=== PATIENT | male | born 1960 | race Caucasian/White ===

== ENCOUNTER → 2017-06-22 | Outpatient (CLI) | payer OTHER ==
[~2017-06-22] MED LIST: METF10002 PO; SERT50TA PO; UNK ANTIBIOTIC; [UNRECOGNIZED DRUG - REMARK]
== END | disposition home or self-care (01) ==
LOC: CFH 16:01
PROVIDERS: ATTEND Nurse Practitioner Family
DX: J32.0 Chronic maxillary sinusitis (principal); J32.1 Chronic frontal sinusitis; J32.2 Chronic ethmoidal sinusitis; R51 Headache
CPT/HCPCS: 70450

== ENCOUNTER 2021-06-21 10:12 | Emergency (ER) | payer OTHER ==
[~2021-06-21] VITALS: Ht 177.8 cm; Wt 101.9 kg
[2021-06-21] MEDS ORDERED: SODIUM CHLORIDE 0.9% 1,000ML IVBOLUS ONE (11:00)
[2021-06-21] MEDS ORDERED: SODIUM CHLORIDE FLUSH 10ML SYR IVF ONE (11:00)
--- NOTE | 2021-06-21 11:23 | NUR ---
PT. IS A & O X 4 WITH A GCS OF 15. PT. PRESENTS TODAY FOR ELEVATED BLOOD SUGARS. PT. REPORTS FEELING THIRSTY X 2 WEEKS. HE STATES HE HAS HAD TYPE 2 DM X 10 YEARS. PT. IS PINK, WARM AND DRY. LUNGS ARE CTA THROUGHOUT. PT.'S ABD. IS SOFT AND ROUND WITH BS + X 4 QUADS. PT. IS AMBULATORY, WHITE WNL. PULSES ARE + 2 THROUGHOUT. PT. HAS THE CP MONITOR IN PLACE AND IV ACCESS WAS ESTABLISHED. PT.'S 12 LEAD EKG WAS DONE. LABS WERE DRAWN AND SENT. PCXR DONE. PT. IS RESTING WITH THE HOB ELEVATED AND SIDERAILS ARE UP X 2. CALL LIGHT IN REACH. PT. DECLINED A BLANKET.
[2021-06-21 11:30] LABS: BASOPHILS % (AUTO) 1 % (0-1); EOSINOPHILS % (AUTO) 1 % (1-7); LYMPHOCYTES % (AUTO) 21 % (22-44); MEAN CORPUSCULAR HEMOGLOBIN 28.6 pg (27.5-34.5); MEAN CORPUSCULAR HGB CONC 34.1 g/dL (33.2-36.2); MEAN PLATELET VOLUME 8.9 fL (7.4-10.4); MONOCYTES % (AUTO) 5 % (2-9); NEUTROPHILS % (AUTO) 72 % (42-75); PLATELET COUNT 282 x10^3/uL (130-400); RED BLOOD COUNT 5.84 x10^6/uL (4.38-5.82); RED CELL DISTRIBUTION WIDTH 14.6 % (9.4-14.8)
[2021-06-21 11:40] LABS: ALANINE AMINOTRANSFERASE 26 U/L (12-78); ALBUMIN 3.7 g/dL (3.4-5.0); ANION GAP 14 mmol/L (5-15); CHLORIDE 97 mmol/L (98-107); CREATININE 1.07 mg/dL (0.7-1.3)
[2021-06-21 11:40] LABS: MICROSCOPIC NOT IND
[2021-06-21 11:44] LABS: ALKALINE PHOSPHATASE 157 U/L (45-117); BILIRUBIN,TOTAL 1.2 mg/dL (0.2-1.0); TOTAL PROTEIN 7.7 g/dL (6.4-8.2)
[2021-06-21] MEDS ORDERED: INSULIN REGULAR 100 UNITS/ML, 3ML VIAL SQ-INSULIN ONE (12:00)
--- NOTE | 2021-06-21 12:00 | NUR ---
PT. IS A & O X 4 WITH A GCS OF 15. IV ACCESS ESTABLISHED. PT. HAS C/O LEFT FLANK PAIN AND STATES HE WAS SEEN HERE X 2 DAYS AGO AND DIAGNOSED WITH KIDNEY STONES. PT. IS PINK, WARM AND DRY. LUNGS ARE CTA. PT.'S ABD. IS SOFT AND FLAT WITH BS + X 4 QUADS. PT. IS GUARDING HIS LEFT LOWER ABD. PT. WAS MEDICATED FOR PAIN AND PLACED ON THE CP MONITOR. VSS. PT. IS HAVING A BEDSIDE US AND LABS WERE DRAWN. PT.'S PULSES ARE +2 THROUGHOUT AND HE MOVES ALL EXTREMITIES. WNL.
--- NOTE | 2021-06-21 12:09 | NUR ---
NO CHANGES AT THIS TIME. NS IS INFUSING.
[2021-06-21 12:45] LABS: ACETONE, SERUM Trace (Negative)
[2021-06-21] MEDS ORDERED: INSULIN SINGLE DOSE, ER ONE (12:50)
--- NOTE | 2021-06-21 13:01 | NUR ---
PT. WAS MEDICATED OREDERED.
--- NOTE | 2021-06-21 13:54 | NUR ---
Patient/Caregiver given discharge instructions and they have confirmed that they understand the instructions. Patient ambulatory with steady gait. NAD, all questions answered appropriately, denies additional needs at this time. No personal belongings left in room after discharge.
[2021-06-21 13:55] VITALS: BP 124/76
== END 2021-06-21 13:58 | disposition home or self-care (01) ==
LOC: ED 13:50
DX: E11.65 Type 2 diabetes mellitus with hyperglycemia (principal); I49.3 Ventricular premature depolarization
CPT/HCPCS: 36415; 71045; 80053; 81003; 82010; 82800; 82962; 83036; 83735; 83880; 84100; 85025; 93005; 96360; 99285; J1815; J7030

== ENCOUNTER 2021-06-27 13:49 | Outpatient (CLI) | payer OTHER | END 2021-06-27 23:59 | disposition home or self-care (01) | LOC: CFH 13:49 → CVU 23:59 | PROVIDERS: ATTEND Internal Medicine Cardiovascular Disease | DX: I25.10 Atherosclerotic heart disease of native coronary artery without angina pectoris (principal); R91.1 Solitary pulmonary nodule; R07.89 Other chest pain; I35.8 Other nonrheumatic aortic valve disorders | CPT/HCPCS: 75571; 93306 ==